=== PATIENT | male | born 1950 | race Caucasian/White ===

== ENCOUNTER 2024-01-21 02:22 | Emergency (ER) | payer MEDICARE ==
[2024-01-21] MEDS: fentaNYL 50 MCG/ML SDV IM ONE (03:42)
== END 2024-01-21 04:00 | disposition home or self-care (01) ==
LOC: JP.ED 02:22
DX: S22.42XA Multiple fractures of ribs, left side, initial encounter for closed fracture (principal); I10 Essential (primary) hypertension; Z88.5 Allergy status to narcotic agent; Z79.899 Other long term (current) drug therapy; Z86.16 Personal history of COVID-19; W22.8XXA Striking against or struck by other objects, initial encounter; Y93.89 Activity, other specified
CPT/HCPCS: 71250; 96372; 99283; J3010

== ENCOUNTER 2024-01-22 06:33 | Emergency (ER) | payer MEDICARE ==
[2024-01-22] MEDS: HYDROmorphone 1 MG/ML Syringe IM ONE (07:35)
== END 2024-01-22 09:18 | disposition home or self-care (01) ==
LOC: JP.ED 06:33
DX: S22.42XA Multiple fractures of ribs, left side, initial encounter for closed fracture (principal); I10 Essential (primary) hypertension; Z86.16 Personal history of COVID-19; Z79.899 Other long term (current) drug therapy; Z88.5 Allergy status to narcotic agent; W19.XXXA Unspecified fall, initial encounter
CPT/HCPCS: 96372; 99283; J1170